=== PATIENT | female | born 1945 | race Caucasian/White ===

== ENCOUNTER 2017-03-12 07:58 | Emergency (ER) | payer OTHER, MEDICARE ==
[~2017-03-12] VITALS: Ht 167.6 cm; Wt 72.0 kg
[2017-03-12 08:00] VITALS: BP 149/82; PULSE 71; RESP 18; TEMP 98.1; O2SAT 97
--- NOTE | 2017-03-12 08:27 | PD ---
HPI Chief Complaint: Musculoskeletal Complaint Time Seen by Provider: 08:16 Travel History International Travel<30 days: No Contact w/Intl Traveler<30days: No Traveled to known affect area: No History of Present Illness HPI Patient 71-year-old female states that she was getting out of the shower yesterday at a hotel stepping on a carpet that was loose and then she slipped fell backwards, she is complaining of right knee right foot pain. She also states that she bumped her head and is on Coumadin for her heart. Patient denies any loss of consciousness, she states walking albeit with cane. They're currently on vacation from [place]. She is accompanied by her daughter. Denies any injury to her chest back abdomen pelvis or other extremity. She states she's had a history of right hip replacement. PFSH Past Medical History Hx Anticoagulant Therapy: Yes (WARFARIN) Cardiovascular Problems: Yes (HTN,MVR,) Respiratory: Yes (COPD) ?: Not Social History Tobacco Use: Yes Allergies-Medications (Allergen,Severity, Reaction): Coded Allergies: No Known Allergies (Unverified , 03/12/17) Reported Meds & Prescriptions Reported Meds & Active Scripts Active [place] (Hydrocodone-Acetaminophen) 5-325 mg Tab 1 Tab PO Q6H PRN Walker/Adult/Folding (Device) 1 Mis Mis 1 Ea .ROUTE DIRECTED Reported Lisinopril 10 Mg Tab 10 Mg PO DAILY Calcitonin ([place]) Nasal [place] (Calcitonin [place]) 200 Units/Act Soln 1 [place] NASAL DAILY Alternate nostrils daily. Lortab (Hydrocodone-Acetaminophen) 7.5-325 Mg Tab 1 Tab PO Q6H PRN Isosorbide Mononitrate ER (Isosorbide Mononitrate) 30 Mg Brent 30 Mg PO DAILY Warfarin 6 Mg Tab 8 Mg PO DAILY Epitol (Carbamazepine) 200 Mg Tab 300 Mg PO BID Pravastatin 40 Mg Tab 40 Mg PO DAILY Levothyroxine (Levothyroxine Sodium) 125 Mcg Tab 125 Mcg PO DAILY Carvedilol 12.5 Mg Tab 12.5 Mg PO BID Review of Systems Except as stated in HPI: all other systems reviewed are Neg Physical Exam Narrative GENERAL: Well-developed well-nourished, no apparent distress. SKIN: Focused skin assessment warm/dry. HEAD: Atraumatic. Normocephalic. No veloz signs no raccoons eyes. EYES: Pupils equal and round. No scleral icterus. No injection or drainage. ENT: No nasal bleeding or discharge. Mucous membranes pink and moist. NECK: Trachea midline. No JVD. CARDIOVASCULAR: Regular rate and rhythm. No murmur appreciated. RESPIRATORY: No accessory muscle use. Clear to auscultation. Breath sounds equal bilaterally. GASTROINTESTINAL: Abdomen soft, non-tender, nondistended. Hepatic and splenic margins not palpable. MUSCULOSKELETAL: No midline CT or L-spine tenderness. Right lower extremity has some bruising over the great toe, tenderness of the great toe at the proximal and distal phalanx, no tenderness at either malleoli of the ankle, no midfoot tenderness, at the knee there is some anterior joint effusion present without any bruising, minimal tenderness popliteal.. There is some anterior tenderness over the patella. Range of motion of the knee is minimally limited by pain. No tenderness at either hip, pelvis stable, left lower extremities atraumatic, upper extremities are atraumatic, pulses motor and sensory intact distally in all 4 extremities. NEUROLOGICAL: Awake and alert. No obvious cranial nerve deficits. Motor grossly within normal limits. Normal speech. PSYCHIATRIC: Appropriate mood and affect; insight and judgment normal. Data Data Last Documented VS Vital Signs Date Time Temp Pulse Resp B/P Pulse Ox O2 Delivery O2 Flow Rate FiO2 03/12/17 08:00 98.1 71 18 149/[address] Brain W/O Iv Contrast(Rout) (03/12/17 ) Knee, Complete (4vws) (03/12/17 ) Foot, Complete ([id number]) (03/12/17 ) Ct Cerv Spine W/O Contrast (03/12/17 ) Shoe Post Op (03/12/17 ) Shoe Cast (03/12/17 ) MDM Medical Decision Making Medical Screen Exam Complete: Yes Emergency Medical Condition: Yes Differential Diagnosis Toe fracture, knee contusion, knee fracture, knee sprain, head injury, anticoagulated status. Narrative Course Last 24 hours Impressions Knee X-Ray 03/12/17 0000 Signed Impressions: Service Date/Time: Sunday, March 12, 2017 08:33 - CONCLUSION: Degenerative changes small joint effusion. Negative for fracture. Marbin Simmons MD FACR Head CT 03/12/17 0000 Signed Impressions: Service Date/Time: Sunday, March 12, 2017 08:41 - CONCLUSION: Negative for acute traumatic injury. Marbin Simmons MD FACR Foot X-Ray 03/12/17 0000 Signed Impressions: Service Date/Time: Sunday, March 12, 2017 08:38 - CONCLUSION: Corner fracture base of the proximal phalanx great toe. Marbin Simmons MD FACR Cervical Spine CT 03/12/17 0000 Signed Impressions: Service Date/Time: Sunday, March 12, 2017 08:41 - CONCLUSION: No evidence of acute bony injury in the cervical spine. Harsh Do MD Discuss results with the patient, she was placed in a hard sole shoe was able to ambulate. She is from out of town is been and bleeding with a cane and her daughters with her requesting a walker. I've written a prescription and after discussing the case management and recommended several options to her for obtaining a walker. She would like to be discharged this time and this is reasonable. Discussed symptomatic management home and return to ED criteria. Diagnosis Primary Impression: Toe fracture, right Qualified Code: S92.414A - Closed nondisplaced fracture of proximal phalanx of right great toe, initial encounter Additional Impression: Knee contusion Med/Other Pt SpecificInfo: Prescription(s) given Scripts Hydrocodone-Acetaminophen ([place])5-325 mg Tab1 Tab PO Q6H PRN (PAIN) #20 TAB Ref 0 Prov:Eriberto Sylvester MD 03/12/17 Walker/Adult/Folding 1 Mis Mis #1 EA .ROUTE DIRECTED Ref 0 Prov:Eriberto Sylvester MD 03/12/17 Disposition: 01 DISCHARGE HOME Condition: Stable Eriberto Sylvester MD Mar 12, 2017 08:27
[2017-03-12] MEDS ORDERED: ISOS30TA3 PO (08:37)
[2017-03-12] MEDS ORDERED: CALC200S NASAL (08:37)
[2017-03-12] MEDS ORDERED: LISI10TA3 PO (08:37)
[2017-03-12] MEDS ORDERED: WARF-60 PO (08:37)
[2017-03-12] MEDS ORDERED: PRAV40TA2 PO (08:37)
[2017-03-12] MEDS ORDERED: CARV12.52 PO (08:37)
[2017-03-12] MEDS ORDERED: EPIT200T PO (08:37)
[2017-03-12] MEDS ORDERED: LEVO125T4 PO (08:37)
[2017-03-12] MEDS ORDERED: HYDR-3534 PO (08:37)
--- NOTE | 2017-03-12 09:10 | RADRPT ---
EXAM DATE/TIME: 03/12/2017 08:41 [facility] COMPARISON: No previous studies available for comparison. INDICATIONS : Fell last night. Hit back of head. RADIATION DOSE: 61.84 CTDIvol (mGy) MEDICAL HISTORY : Hypertension. Cardiovascular disease Chronic obstructive pulmonary disease.Anticoagulant therapy. SURGICAL HISTORY : Heart valve. ENCOUNTER: Initial ACUITY: 2 days PAIN SCALE: 4/10 LOCATION: cranial TECHNIQUE: Multiple contiguous axial images were obtained of the head. Using automated exposure control and adj ustment of the mA and/or kV according to patient size, radiation dose was kept as low as reasonably a chievable to obtain optimal diagnostic quality images. DICOM format image data is available electro nically for review and comparison. FINDINGS: CEREBRUM: The ventricles are normal for age. No evidence of midline shift, mass lesion, hemorrhage or acute in farction. No extra-axial fluid collections are seen. POSTERIOR FOSSA: The cerebellum and brainstem are intact. The 4th ventricle is midline. The cerebellopontine angle i s unremarkable. EXTRACRANIAL: The visualized portion of the orbits is intact. SKULL: The calvaria is intact. No evidence of skull fracture. Small bony prominence projects off of the le ft occipital bone of doubtful clinical significance. CONCLUSION: Negative for acute traumatic injury. Marbin Simmons MD FACR on March 12, 2017 at 9:07 Board Certified Radiologist. This report was verified electronically.
--- NOTE | 2017-03-12 09:26 | RADRPT ---
EXAM DATE/TIME: 03/12/2017 08:33 [facility] COMPARISON: No previous studies available for comparison. INDICATIONS : Right knee pain patient fell. MEDICAL HISTORY : None. SURGICAL HISTORY : None. ENCOUNTER: Initial ACUITY: 1 day PAIN SCORE: 4/10 LOCATION: Right knee FINDINGS: There is loss of articular cartilage in the medial compartment. There is no evidence for fracture. Small joint effusion is evident. Degenerative changes are present patellofemoral compartment. CONCLUSION: Degenerative changes small joint effusion. Negative for fracture. Marbin Simmons MD FACR on March 12, 2017 at 9:23 Board Certified Radiologist. This report was verified electronically.
--- NOTE | 2017-03-12 09:28 | RADRPT ---
EXAM DATE/TIME: 03/12/2017 08:38 [facility] COMPARISON: No previous studies available for comparison. INDICATIONS : Right foot pain patient fell MEDICAL HISTORY : None. SURGICAL HISTORY : None. ENCOUNTER: Initial ACUITY: 1 day PAIN SCORE: 4/10 LOCATION: Right Foot FINDINGS: There is a fracture base of the proximal phalanx great toe. Degenerative is are evident. No other f ractures are appreciated. Apparent bone island is present the distal second metatarsal. CONCLUSION: Corner fracture base of the proximal phalanx great toe. Marbin Simmons MD FACR on March 12, 2017 at 9:24 Board Certified Radiologist. This report was verified electronically.
--- NOTE | 2017-03-12 09:49 | RADRPT ---
EXAM DATE/TIME: 03/12/2017 08:41 [facility] COMPARISON: No previous studies available for comparison. INDICATIONS : Fell last night. RADIATION DOSE: 26.53 CTDIvol (mGy) MEDICAL HISTORY : Hypertension. Cardiovascular disease Chronic obstructive pulmonary disease.Anticoagulant therapy. SURGICAL HISTORY : Heart valve. ENCOUNTER: Initial ACUITY: 2 days PAIN SCALE: 3/10 LOCATION: neck TECHNIQUE: Volumetric scanning of the cervical spine was performed. Multiplanar reconstructions in the sagittal, coronal and oblique axial planes were performed. Using automated exposure control and adjustment o f the mA and/or kV according to patient size, radiation dose was kept as low as reasonably achievable to obtain optimal diagnostic quality images. DICOM format image data is available electronically f or review and comparison. FINDINGS: Alignment is satisfactory. There is no evidence of cervical spine fracture. There is degenerative ken[place] nge with disc space narrowing and mild endplate osteophyte formation most significantly at C4-5 and C 6-7 levels. No evidence of bony canal or foraminal compromise. Mild multilevel posterior facet arthro romulo. There is no evidence of paraspinal hematoma. There is prominent apical lung density which may be scarring. CONCLUSION: No evidence of acute bony injury in the cervical spine. Harsh Do MD on March 12, 2017 at 9:44 Board Certified Radiologist. This report was verified electronically.
[2017-03-12] MEDS ORDERED: WALKER/ADULT/FO1 MIS (10:23)
[2017-03-12] MEDS ORDERED: NORC5TAB PO (10:24)
== END 2017-03-12 10:40 | disposition home or self-care (01) ==
LOC: PHED 07:58
DX: S92.414A Nondisplaced fracture of proximal phalanx of right great toe, initial encounter for closed fracture (principal); S80.00XA Contusion of unspecified knee, initial encounter; W01.0XXA Fall on same level from slipping, tripping and stumbling without subsequent striking against object, initial encounter; Z79.01 Long term (current) use of anticoagulants; Z96.641 Presence of right artificial hip joint; I10 Essential (primary) hypertension; J44.9 Chronic obstructive pulmonary disease, unspecified; Z79.899 Other long term (current) drug therapy
CPT/HCPCS: 70450; 72125; 73564; 73630; 99285; L3260